=== PATIENT | female | born 1950 | race African-American/Black ===

== ENCOUNTER 2017-01-08 09:36 | Observation (INO) | payer MEDICARE ==
[2017-01-08] VITALS (10 sets, daily range): BP systolic 127–153; BP diastolic 74–87
[~2017-01-08] VITALS: Ht 160 cm; Wt 172.7 kg
[~2017-01-08 09:36] MED LIST: ADULT ASPIRIN E81 MG PO; ADVAIR DISK1 INH; ALBUTEROL0.5 % IN; ALDACTONE50 M1 PO; ISOSORBIDE MONO30 MG PO; METFORMIN1000 MG PO; MICRONASE5 MG PO; MULTI VIT PO; NAPROSYN500 MG PO; PERCOCET 5/325M1 TAB PO; PRILOSEC20 MG PO; PROAIR HFA IN
[2017-01-08 10:10] LABS: HEMATOCRIT 40.7 % (37.0-47.0); HEMOGLOBIN 13.3 g/dl (12.0-16.0); IMMATURE GRANULOCYTES 0.5 % (0.0-1.0); MEAN CELL VOLUME 91.5 fL CALC (80.0-100.0); MEAN CORPUSCULAR HGB 29.9 pG CALC (26.0-32.0); MEAN CORPUSCULAR HGB CONC 32.7 g/L CALC (32.0-36.0); NEUT# 3.85 thou/uL (2.00-7.15); RED BLOOD COUNT 4.45 mill/uL (4.20-5.60); RED CELL DISTRI WIDTH 13.8 % (11.5-15.5)
[2017-01-08 10:26] LABS: ANION GAP 16 (6-22 (CALC)); BUN 14 mg/dL (8-23); BUN/CREATININE RATIO 17 (12-20 (CALC)); CALCIUM 10.2 mg/dL (8.4-10.2); CARBON DIOXIDE 31 mmol/l (22-30); CHLORIDE 99 mmol/l (95-108); CREATININE 0.9 mg/dL (0.5-1.0); GFR > 60 ML/MIN (>=60 (CALC)); GFR FOR AFR.AMER. > 60 ML/MIN (>=60 (CALC)); GLUCOSE 40 mg/dL (82-115); POTASSIUM 3.8 mmol/l (3.5-5.1); SODIUM 142 mmol/l (137-146)
[2017-01-08] MEDS ORDERED: D32000 UNIT PO (10:49)
[2017-01-08 10:54] LABS: URINE BILIRUBIN - DIPSTICK NEGATIVE (NEGATIVE); URINE BLOOD DIPSTICK TRACE-INTACT (NEGATIVE); URINE CLARITY CLEAR; URINE COLOR YELLOW; URINE GLUCOSE - DIPSTICK 250 mg/dL (NEGATIVE); URINE KETONE NEGATIVE (NEGATIVE); URINE LEUK ESTERASE NEGATIVE (NEGATIVE); URINE NITRITE - DIPSTICK NEGATIVE (Negative); URINE PROTEIN - DIPSTICK 100 mg/dL (NEG-TRACE); URINE SPECIFIC GRAVITY 1.025; URINE UROBILINOGEN - DIPSTICK 0.2 E.U./dL (0.2)
[2017-01-08 11:01] LABS: URINE RBC 0-2 RBC/hpf (0-5); URINE SQUAMOUS EPITHELIAL CELL FEW EPI/hpf (0-FEW); URINE WBC 0-2 WBC/hpf (0-5)
[2017-01-09] VITALS (8 sets, daily range): BP systolic 115–138; BP diastolic 63–83
[2017-01-09 05:40] LABS: ANION GAP 15 (6-22 (CALC)); BUN 18 mg/dL (8-23); BUN/CREATININE RATIO 21 (12-20 (CALC)); CALCIUM 9.5 mg/dL (8.4-10.2); CALCULATED LDLCHOLESTEROL 66 mg/dL (62-129 (CALC)); CARBON DIOXIDE 29 mmol/l (22-30); CHLORIDE 97 mmol/l (95-108); CHOLESTEROL HDL RATIO 2.9 (<4.4 (CALC)); CREATININE 0.9 mg/dL (0.5-1.0); GFR > 60 ML/MIN (>=60 (CALC)); GFR FOR AFR.AMER. > 60 ML/MIN (>=60 (CALC)); GLUCOSE 265 mg/dL (82-115); HDL CHOLESTEROL 44 mg/dL (>=40); MAGNESIUM 1.7 mg/dL (1.6-2.3); POTASSIUM 4.7 mmol/l (3.5-5.1); SODIUM 137 mmol/l (137-146); TOTAL CHOLESTEROL 126 mg/dl (0-199); TRIGLYCERIDES REFLEX TO dLDL 78 mg/dl (30-149); VLDL CHOLESTROL 16 mg/dl (1-41 (CALC))
[2017-01-09] MEDS ORDERED: METFORMIN1000 MG PO (12:42)
[2017-01-09] MEDS ORDERED: ATORVASTATIN CA10 MG PO (12:44)
[2017-01-09] MEDS ORDERED: TRULICITY0.75 MG/0. SC (12:44)
[2017-01-09] MEDS ORDERED: ASPIRIN 81 LOW81 MG PO (12:45)
[2017-01-09] MEDS ORDERED: LOSARTAN POT50 MG PO (12:46)
== END 2017-01-09 14:15 | disposition home or self-care (01) ==
LOC: ED 09:36 → ED-I 11:20 → ED 11:38 → ICU 11:39
PROVIDERS: Family Medicine; ADMIT Internal Medicine; ATTEND Internal Medicine
PROC: 3E0234Z Introduction of Serum, Toxoid and Vaccine into Muscle, Percutaneous Approach (ICD-10-PCS; principal; 2017-01-09)
DX: E11.649 Type 2 diabetes mellitus with hypoglycemia without coma (principal); I10 Essential (primary) hypertension; J44.9 Chronic obstructive pulmonary disease, unspecified; M15.9 Polyosteoarthritis, unspecified; G47.33 Obstructive sleep apnea (adult) (pediatric); J06.9 Acute upper respiratory infection, unspecified; E66.09 Other obesity due to excess calories; E11.65 Type 2 diabetes mellitus with hyperglycemia; Z23 Encounter for immunization; Z79.84 Long term (current) use of oral hypoglycemic drugs; Z68.44 Body mass index [BMI] 60.0-69.9, adult
CPT/HCPCS: J1650

== ENCOUNTER 2018-07-12 09:13 | Day surgery (SDC) | payer MEDICARE ==
[~2018-07-12] VITALS: Ht 160 cm; Wt 113.4 kg
[~2018-07-12 09:13] MED LIST changes: +AMLODIPINE5 MG PO; +ASPIRIN 81 LOW81 MG PO; +ATORVASTATIN CA10 MG PO; +BREO ELLIPTA 101 INH IN; +D32000 UNIT PO; +LOSARTAN POT50 MG PO; +OZEMPIC2 MG/1.5 M IJ; +TRULICITY0.75 MG/0. SC
[2018-07-12 11:25] VITALS: BP 126/76
== END 2018-07-12 11:34 | disposition home or self-care (01) ==
LOC: ENDO 09:13
PROVIDERS: ATTEND Surgery
PROC: 0DJD8ZZ Inspection of Lower Intestinal Tract, Via Natural or Artificial Opening Endoscopic (ICD-10-PCS; principal; 2018-07-12)
DX: Z12.11 Encounter for screening for malignant neoplasm of colon (principal); K64.4 Residual hemorrhoidal skin tags; Q43.8 Other specified congenital malformations of intestine; K57.30 Diverticulosis of large intestine without perforation or abscess without bleeding; Z86.010 Personal history of colon polyps